=== PATIENT | male | born 1975 | race Caucasian/White ===

== ENCOUNTER 2016-11-23 07:43 | Outpatient (CLI) | payer OTHER ==
--- NOTE | 2016-11-23 09:35 | MRI Report ---
EXAM: LEFT KNEE MRI WITHOUT CONTRAST EXAM DATE: 11/23/2016 08:00 AM. CLINICAL HISTORY: Patellar dislocation in August 2015. Locking and stiffness of the knee. COMPARISON: None. TECHNIQUE: Multiplanar, multisequence T1-weighted and fluid-sensitive sequences of the knee without c ontrast. Other: None. FINDINGS: Bones: 0.8 cm lateral patellar subluxation.. Tibiofemoral alignment normal. No fracture or marrow yandy ma. Articular Cartilage: Unremarkable. Medial Meniscus: Normal. Lateral Meniscus: 1 cm bucket-handle type tear of the anterior horn and body with the 1 cm linear fra gment flipped over the anterior horn lateral meniscal root. Cruciate Ligaments: The anterior and posterior cruciate ligaments are intact. Collateral Ligaments: The medial collateral and lateral collateral ligamentous structures are intact. Tendons: Mild T2 hyperintensity distal quadriceps and proximal patellar tendons. Remaining tendons ap pear normal. Musculature: No edema or fatty atrophy. Other: Trace joint fluid. No popliteal cyst. No loose bodies. The medial and lateral retinacula are intact. The subcutaneous tissues and fat pads are unremarkable. IMPRESSION: 1. 1 cm bucket-handle tear anterior horn and body lateral meniscus. The 1 cm linear bucket-handle fra gment is flipped anteriorly over the anterior horn lateral meniscal root. 2. Mild lateral patellar subluxation. 3. Mild tendinosis distal quadriceps and proximal patellar tendons. [facility]CUL[facility] SECTION Referring Provider Line: [phone] SITE ID: [id number]
== END 2016-11-23 07:44 | disposition home or self-care (01) ==
LOC: DI 07:43
PROVIDERS: ATTEND Physician Assistant
DX: S83.252A Bucket-handle tear of lateral meniscus, current injury, left knee, initial encounter (principal); M67.88 Other specified disorders of synovium and tendon, other site

== ENCOUNTER 2017-01-28 13:17 | Outpatient (CLI) | payer OTHER ==
[2017-01-28] MEDS ORDERED: IOTHALAMATE MEGLUMINE 50 ML VIAL ONE (13:44)
[2017-01-28] MEDS ORDERED: LIDOCAINE 1% 10 ML MDV ONE (13:44)
[2017-01-28] MEDS ORDERED: GADOPENTETATE DIMEGLUMINE 5 ML VIAL IVP ONE ×3 (13:45→14:40)
[2017-01-28] MEDS ORDERED: BUFFERED LIDOCAINE 10 ML SYRINGE IU ONE ×2 (14:40)
[2017-01-28] MEDS ORDERED: LIDOCAINE 1% 10 ML MDV SUBQ ONE ×2 (14:40)
[2017-01-28] MEDS ORDERED: IOTHALAMATE MEGLUMINE 50 ML VIAL IVP ONE ×2 (14:40)
--- NOTE | 2017-01-28 16:34 | XRAY Report ---
LEFT SHOULDER INJECTION PRIOR TO MRI: 01/28/2017 HISTORY: Persistent left shoulder discomfort status post remote trauma. FINDINGS: Informed consent is obtained from the patient. Under fluoroscopic guidance, the left glenohumeral articulation is marked. With sterile technique and after the injection of 1% lidocaine for local anesthesia, a 22-gauge spinal needle is introduced into the left shoulder joint and 12 mL of a solution containing 10 mL ConRay, 10 mL lidocaine 1%, and 0.1 mL of gadolinium are injected. A fluoroscopic image confirms needle placement and contrast within the joint space. The patient tolerated the procedure well. 1 minute 3 seconds of fluoroscopy time are used. 1 image is obtained. IMPRESSION: SUCCESSFUL LEFT SHOULDER INJECTION PRIOR TO MRI. JOB #: [id number] EXT JOB #: [id number] MARIA GUADALUPE
--- NOTE | 2017-01-28 18:36 | MRI Report ---
EXAM: LEFT SHOULDER MRI ARTHROGRAM WITH CONTRAST EXAM DATE: 01/28/2017 03:14 PM. CLINICAL HISTORY: PAIN IN LEFT SHOULDER. COMPARISON: None. TECHNIQUE: Multiplanar, multisequence T1-weighted and fluid-sensitive sequences of the shoulder after an arthrographic injection of dilute gadolinium, dictated under a separate exam. Other: None. FINDINGS: Rotator cuff: Rotator cuff tendons appear intact without evidence of tear or significant tendinosis. No rotator cuff muscle atrophy or fatty replacement. Long head biceps tendon: Intact, demonstrating normal course, signal, and morphology. Labrum: Shallow contrast-filling cleft at the base of the posterior inferior labrum. Remainder of the liver appears intact. No paralabral cyst formation. Bones and articular surfaces: Slight posterior subluxation of the humeral head. No significant articu lar cartilage abnormalities are seen. Acromioclavicular joint: Normal appearance. Type II acromion. IMPRESSION: 1. Shallow contrast-filling cleft at the base of the posterior inferior labrum. Possible small focus of shallow labral tear. Remainder of the labrum appears normal. 2. Shoulder MR arthrogram otherwise within normal limits. [facility]CULOSKE[facility] SECTION Referring Provider Line: [phone] SITE ID: [id number]
== END 2017-01-28 13:18 | disposition home or self-care (01) ==
LOC: DI 13:17
PROVIDERS: ATTEND Orthopaedic Surgery
DX: M25.512 Pain in left shoulder (principal)
CPT/HCPCS: 23350; 73222; 77002; Q9961

== ENCOUNTER 2017-07-24 11:52 | Emergency (ER) | payer OTHER ==
[2017-07-24 12:00] VITALS: BP 144/74
--- NOTE | 2017-07-24 12:19 | ED Physician Documentation ---
History of Present Illness - Stated complaint Stated Complaint: MALE - Chief complaint Chief Complaint: General - History obtained from History obtained from: Patient - History of Present Illness Timing: Other (3 days ago, a day after doing some lifting but not lifting at the time he developed left scrotal pain with swelling radiating up into the left pelvis. There is no discharge or difficulty with urination or other urinary symptoms. No concern for STDs. He does intermittently take doxycycline for flares of hidradenitis, the last time he took it was about 2 weeks ago.) Review of Systems Constitutional: denies: Fever, Chills GI: denies: Abdominal Pain, Nausea, Vomiting : denies: Dysuria, Frequency, Hesitancy PD PAST MEDICAL HISTORY - Present Medications Home Medications: Ambulatory Orders Medication Instructions Recorded Confirmed Doxycycline Hyclate 1 tab PO DAILY 07/24/17 07/24/17 Meloxicam [Mobic] 1 tab PO BID 07/24/17 07/24/17 Ranitidine HCl [Acid Project Manager Retail] 1 tab PO DAILY 07/24/17 07/24/17 - Allergies Allergies/Adverse Reactions: Allergies Allergy/AdvReac Type Severity Reaction Status Date / Time No Known Drug Allergies Allergy Verified 07/24/17 12:00 PD ED PE NORMAL - Vitals Vital signs reviewed: Yes - General General: Alert and oriented X 3, No acute distress - Abdomen Abdomen: Soft, Non tender - Male Male : Other (Left hemiscrotum is swollen and tender over the epididymis with normal lie. He does not have a cremasteric reflex on that side but he does not on the contralateral side either. There is no hernia mass or abdominal tenderness.) - Back Back: No CVA TTP, No spinal TTP - Neuro Neuro: Alert and oriented X 3, Normal speech - Psych Psych: Normal mood, Normal affect Results - Vitals Vitals: Vital Signs - 24 hr 07/24/17 11:56 Temperature 36.1 C L Heart Rate 57 L Respiratory 14 Rate Blood Pressure 144/74 H O2 Saturation 99 Oxygen O2 Source Room air - Rads (name of study) Testicular sono Radiology: Prelim report reviewed (Per Dr. Flynn, hypervascular left epididymis consistent with left epididymitis and incidental left testicular cyst.) PD MEDICAL DECISION MAKING - ED course ED course: Because of his chronic hidradenitis he has plenty doxycycline at home. Departure - Departure Disposition: Home, Self Care Clinical Impression: Acute epididymitis Condition: Good Record reviewed to determine appropriate education?: Yes Instructions: Epididymitis Dc Comments: Take doxycycline at a dose of 100 mg twice a day for 2 weeks, this should improve your condition. [place] Return if worse. Your blood pressure was elevated today on check into the emergency department. This does not mean that you have hypertension, it is a common phenomenon to come to the emergency department and have elevated blood pressure. I recommend that you see your primary care physician within the week to have it rechecked when you are feeling better. Discharge Date/Time: 07/24/17 14:25
[2017-07-24] MEDS ORDERED: LIDOCAINE 1% 2 ML VIAL SUBQ ONE (13:34)
[2017-07-24] MEDS ORDERED: cefTRIAXone 250 MG VIAL IM STA (13:34)
--- NOTE | 2017-07-24 13:40 | Ultrasound Report ---
SCROTAL DUPLEX: 07/24/2017 CLINICAL INDICATION: Left-sided pain and swelling. TECHNIQUE: Real-time scanning was performed with outside dealer sales representative static images obtained. FINDINGS: The right testicle measures 4.5 x 2.9 x 2.0 cm. It demonstrates normal flow and echotexture. The right epididymis is unremarkable. The left testicle measures 4.7 x 2.7 x 2.1 cm. An incidental 4 mm cyst is noted. Normal flow is seen, and the remainder of the testicle demonstrates normal echotexture. The left epididymis is hypervascular, suggestive of epididymitis. No hydrocele or varicocele is seen. No hernia is appreciated. IMPRESSION: HYPERVASCULAR LEFT EPIDIDYMIS RELATIVE TO THE RIGHT, SUGGESTIVE OF EPIDIDYMITIS. INCIDENTAL 4 MM LEFT TESTICULAR CYST. NO SUSPICIOUS SOLID TESTICULAR LESION IS APPRECIATED. NO EVIDENCE OF TESTICULAR TORSION AT THIS TIME. TD: 07/24/2017 13:34
== END 2017-07-24 14:25 | disposition home or self-care (01) ==
LOC: ED 11:52
DX: N45.1 Epididymitis (principal); R03.0 Elevated blood-pressure reading, without diagnosis of hypertension
CPT/HCPCS: 76870; 93975; 96372; 99282; 99283

== ENCOUNTER 2017-08-27 12:35 | Emergency (ER) | payer OTHER ==
--- NOTE | 2017-08-27 12:44 | ED Physician Documentation ---
PD HPI HEAD INJURY - Stated complaint Stated Complaint: EYE INJURY - Chief complaint Chief Complaint: Trauma Hd/Nk - History obtained from History obtained from: Patient - History of Present Illness Mechanism of head injury: Blow (he was pitching in softball game and got line drive batted back to him, with impact to left periorbital area. Pain and swelling around left eye, and unable to see due to swelling. Has laceration medial eyebrow area. Pain at nose and some epistaxis. No LOC, no altered mentation. No vomiting, but has nausea. 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 No: LOC, AMS, Neck pain Symptoms improve with: No: Rest Symptoms worsen with: Palpation Contributing factors: No: Anticoagulated, Intoxicated Similar symptoms before: Has not had sx before Recently seen: Not recently seen Review of Systems Constitutional: denies: Fever, Chills Nose: denies: Rhinorrhea / runny nose, Congestion Throat: denies: Sore throat Cardiac: denies: Chest pain / pressure Respiratory: denies: Dyspnea, Cough GI: reports: Nausea. denies: Abdominal Pain, Vomiting : denies: Dysuria, Frequency Neurologic: denies: Focal weakness, Numbness PD PAST MEDICAL HISTORY - Past Medical History Cardiovascular: None Respiratory: None Neuro: None Endocrine/Autoimmune: None - Past Surgical History Past Surgical History: No - Present Medications Home Medications: Ambulatory Orders Medication Instructions Recorded Confirmed Doxycycline Hyclate 1 tab PO DAILY 07/24/17 07/24/17 Meloxicam [Mobic] 1 tab PO BID 07/24/17 07/24/17 Ranitidine HCl [Acid Twitchell Operator] 1 tab PO DAILY 07/24/17 07/24/17 HYDROcod/ACETAM 5/325 [[facility] 5/325] 1 tab PO Q6H PRN #15 tablet 08/27/17 Ibuprofen [Motrin] 600 mg PO TID #30 tab 08/27/17 - Allergies Allergies/Adverse Reactions: Allergies Allergy/AdvReac Type Severity Reaction Status Date / Time isoniazid Allergy Hives Verified 08/27/17 12:52 - Social History Does the pt smoke?: No Smoking Status: Never smoker Does the pt drink ETOH?: Yes Does the pt have substance abuse?: No - Immunizations Immunizations are current?: Yes PD ED PE NORMAL - Vitals Vital signs reviewed: Yes - General General: Alert and oriented X 3, Well developed/nourished, Other (uncomfortable due to facial injury. Swelling left periorbital, and hard to open eyelids due to swelling. I can open them enough to see eye and pupil appears similar size to other. He can see light. I could not get the eye open enough to really test visual acuity. There is laceration 1.5 cm at medial eyebrown area. He has numbness of lower lip and teeth, but no lac at infraorbital area. Nose is some tender. No dental injury noted. ) - HEENT HEENT: Pharynx benign - Neck Neck: Supple, no meningeal sign, No bony TTP, No adenopathy - Cardiac Cardiac: RRR, No murmur - Respiratory Respiratory: Clear bilaterally, Other (no chestwall tenderness) - Abdomen Abdomen: Soft, Non tender - Derm Derm: Normal color, Warm and dry - Neuro Neuro: Alert and oriented X 3, No motor deficit, Normal speech, Other (numbness left upper lip and teeth area, and left side of nose. ) Eye Opening: Spontaneous (with limitation of left eyelids swelling.) Motor: Obeys Commands Verbal: Oriented GCS Score: 15 - Psych Psych: Normal mood, Normal affect Results - Vitals Vitals: Oxygen O2 Source Room air - Labs Labs: Laboratory Tests 08/27/17 08/27/17 12:47 12:47 WBC 6.4 RBC 4.75 Hgb 12.9 L Hct 39.5 L MCV 83.3 MCH 27.2 MCHC 32.6 RDW 14.0 Plt Count 183 MPV 8.6 Neut # (Auto) 3.1 Lymph # (Auto) 2.7 [place] # (Auto) 0.5 Eos # (Auto) 0.1 Baso # (Auto) 0.0 Absolute Nucleated RBC 0.00 Nucleated RBC % 0.1 Sodium 134 L Potassium 3.1 L Chloride 102 Carbon Dioxide 22 Anion Gap 10.0 BUN 18 Creatinine 1.1 Estimated GFR (MDRD) 73 L Glucose 103 H Calcium 9.4 Total Bilirubin 0.5 AST 30 ALT 33 Alkaline Phosphatase 75 Total Protein 7.7 Albumin 3.6 Globulin 4.1 Albumin/Globulin Ratio 0.9 L Lipase 24 - Rads (name of study) facial CT Radiology: Prelim report reviewed (nasal fracture mild and medial wall small fracture, not displaced. Orbit with swelling and some blood preseptal. No posterior blood/swelling. ) Procedures - Laceration (location) left medial eyebrow Length in cm: 2 Wound type: Curved, Into subcut fat, Clean Neurovascular status: Sensory intact, Motor intact Wound Preparation: Irrigated copiously NS, Wound edges modified Deep layer closure: Vicryl, size #-0 - enter number (5), # sutures - enter number (3) Skin layer closure: Nylon, Running, Size #-0 - enter number (6) Other: Patient tolerated well, No complications, Neurovascular intact, Tetanus UTD Complexity: Intermediate PD MEDICAL DECISION MAKING - ED course Complexity details: reviewed results (mild fracture of nose and medial orbital wall. ), considered differential (will get facial and head CT; unable to get good look at eye but seems initially okay. [place] when swelling down enough for good eye exam. ), d /w patient - Sepsis Event Vital Signs: Oxygen O2 Source Room air Departure - Departure Disposition: Home, Self Care Clinical Impression: Struck by softball, initial encounter, Periorbital swelling Facial bones, closed fracture Qualifiers: Encounter type: initial encounter Facial bone/location: nasal bone Qualified Code(s): S02.2XXA - Fracture of nasal bones, initial encounter for closed fracture Eyebrow laceration Qualifiers: Encounter type: initial encounter Laterality: left Qualified Code(s): S01.112A - Laceration without foreign body of left eyelid and periocular area, initial encounter Condition: Stable Record reviewed to determine appropriate education?: Yes Instructions: ED Fx Nasal Conf W X Ray, ED Laceration Facial Sutr Tape Follow-Up: MARILOU JO [Primary Care Provider] - Prescriptions: HYDROcod/ACETAM 5/325 [[place] 5/325] 1 tab PO Q6H PRN #15 tablet PRN Reason: Pain Ibuprofen [Motrin] 600 mg PO TID #30 tab Comments: apply cool towels or ice periodically to the face and stay sitting upward in sleep reclined to reduce swelling. Use ibuprofen 3 times a day. Add Tylenol or hydrocodone if needed for pain. Off work and rest for 3 or 4 days. Follow-up in several days with your primary care for reevaluation of the wound and also the swelling around the eyes should be reduced enough to be able to get a better examination of the vision acuity. It is okay to wash and shower. Clean off the wound twice a day with soap and water, or peroxide and water. Apply some antibiotic ointment to it to keep it moist. Also to watch for signs of infection such as purulence, redness or increasing pain. Return to your primary care or the ER at the specified time for suture removal. Suture removal 7 or 8 days. See how your nose appearance and function is after a couple of weeks and your primary can refer you to ear nose and throat if needed for follow-up of those if there is any impairment. Discharge Date/Time: 08/27/17 14:32
[2017-08-27] MEDS ORDERED: ONDANSETRON 4 MG/2 ML VIAL IVP STA (12:51)
[2017-08-27] MEDS ORDERED: MORPHINE 10 MG/ML VIAL IVP STA (12:51)
[2017-08-27] MEDS ORDERED: SODIUM CHLORIDE 0.9% 1,000 ML IV ONE (12:52)
[2017-08-27] MEDS ORDERED: LIDOCAINE MPF 1%-EPI 1:200000 30 ML VIAL SUBQ STA (12:58)
[2017-08-27 13:00] LABS: BASOPHILS % (AUTO) 0.3 %; EOSINOPHILS # (AUTO) 0.1 10^3/uL (0.0-0.7); EOSINOPHILS % (AUTO) 1.4 %; HGB - HEMOGLOBIN 12.9 g/dL (14.0-18.0); LYMPHOCYTES # (AUTO) 2.7 10^3/uL (1.5-3.5); LYMPHOCYTES % (AUTO) 42.3 %; MEAN CORPUSCULAR HEMOGLOBIN 27.2 pg (27.0-31.0); MEAN CORPUSCULAR HGB CONC 32.6 g/dL (32.0-36.0); MEAN CORPUSCULAR VOLUME 83.3 fL (80.0-94.0); MEAN PLATELET VOLUME 8.6 fL (7.4-11.4); MONOCYTES # (AUTO) 0.5 10^3/uL (0.0-1.0); NEUTROPHILS # (AUTO) 3.1 10^3/uL (1.5-6.6); PLT - PLATELET COUNT 183 10^3/uL (130-450); RED BLOOD COUNT 4.75 10^6/uL (4.70-6.10); WHITE BLOOD COUNT 6.4 x10^3/uL (4.8-10.8)
[2017-08-27 13:10] LABS: ALBUMIN 3.6 g/dL (3.2-5.5); ALBUMIN/GLOBULIN RATIO 0.9 (1.0-2.2); BILIRUBIN,TOTAL 0.5 mg/dL (0.2-1.0); CALCIUM 9.4 mg/dL (8.5-10.3); CREATININE 1.1 mg/dL (0.6-1.2); TOTAL PROTEIN 7.7 g/dL (6.7-8.2)
--- NOTE | 2017-08-27 13:35 | CT Report ---
Procedure Date: 08/27/2017 Accession Number: [id number] / [id number] Procedure: CT - Head W/O CPT Code: FULL RESULT: EXAM: CT HEAD EXAM DATE: 08/27/2017 01:15 PM. CLINICAL HISTORY: Struck left face with softball. COMPARISON: None. TECHNIQUE: Multiaxial CT images were obtained from the foramen magnum to the vertex. Reformats: Coronal. IV contrast: None. In accordance with CT protocol optimization, one or more of the following dose reduction techniques were utilized for this exam: automated exposure control, adjustment of mA and/or KV based on patient size, or use of iterative reconstructive technique. FINDINGS: Parenchyma: No intraparenchymal hemorrhage. No evidence of mass, midline shift, or CT findings of infarction. Taylor-white differentiation is distinct. Extraaxial Spaces: Normal for age. No subdural or epidural collections identified. Ventricles: Normal in size and position. Sinuses and Orbits: Mild bilateral ethmoid sinus disease. Remainder of included portions of the paranasal sinuses and mastoid air cells are clear. Bones: Minimally displaced nasal bone fracture with deviation to the right. No other definitive fractures are identified. Other: There is left paranasal, premaxillary left periorbital and frontal soft tissue edema with associated hematoma measuring at least 2 cm. Soft tissue defect and subcutaneous air/gas is also seen most likely representing a laceration. Lobular heterogeneous soft tissue mass is seen along the right parietal scalp measuring approximately 5 cm area. Globes and orbits are intact. IMPRESSION: 1. No acute intracranial abnormality is identified. 2. Nasal bone fracture with mild deviation to the right. 3. Extensive left facial, periorbital and frontal soft tissue edema, hematoma and laceration. 4. Left globe and orbit intact. 5. Right parietal 5 cm soft tissue scalp mass. [facility]
--- NOTE | 2017-08-27 13:48 | CT Report ---
Procedure Date: 08/27/2017 Accession Number: [id number] / [id number] Procedure: CT - Facial Bones W/O CPT Code: FULL RESULT: EXAM: CT MAXILLOFACIAL WITHOUT CONTRAST EXAM DATE: 08/27/2017 01:15 PM. CLINICAL HISTORY: Struck left periorbital with softball. COMPARISONS: None. TECHNIQUE: Thin-section axial images were acquired of the face without contrast. Post-processing: Coronal and sagittal reformats. Other: None. In accordance with CT protocol optimization, one or more of the following dose reduction techniques were utilized for this exam: automated exposure control, adjustment of mA and/or KV based on patient size, or use of iterative reconstructive technique. FINDINGS: Soft Tissue: Extensive left nasal, premaxillary, periorbital, frontal largely left frontal soft tissue edema and hematoma measuring approximately 2 cm with hematoma and blood products tracking along the margins of the left globe superiorly along the cephalad margin of the left superior rectus muscle. Airways are clear. Laceration also present involving the left superior periorbital and left frontal soft tissues. Orbits: Intact globes in particular on the left although there is mild post septal edema along the superior aspect of the left globe and along the left superior rectus muscle which appears to represent blood products. No intraconal edema is definitively seen. Bones: Nasal bone fracture seen with slight deviation to the right and slight displacement. Slight displacement of anterior nasal septal fracture also noted. In addition, there is a nondisplaced left inferior orbital floor fracture with displacement margin along the mid anterior aspect of the left orbital floor Temporomandibular Joints: The temporomandibular joints are symmetric and normally located. Sinuses: Mild bilateral maxillary, sphenoid and ethmoid sinus disease. Remainder of the paranasal sinuses and mastoid air cells are clear. Other: Degenerative changes of the cervical spine. IMPRESSION: 1. Mildly displaced nasal bone and anterior nasal septal fracture with deviation to the right. 2. Minimally displaced left inferior orbital floor fracture inferiorly largely along the mid anterior aspect of the orbital floor. 3. Intact left globe with blood products tracking post septal along the cephalad margin of the left globe and left superior rectus musculature. No post-septal involvement. 4. Extensive left premaxillary, paranasal, periorbital and frontal soft tissue edema and hematoma and laceration. [facility]
[2017-08-27 14:31] VITALS: BP 147/85
== END 2017-08-27 14:32 | disposition home or self-care (01) ==
LOC: ED 12:35
DX: S02.2XXA Fracture of nasal bones, initial encounter for closed fracture (principal); S02.32XA Fracture of orbital floor, left side, initial encounter for closed fracture; S01.112A Laceration without foreign body of left eyelid and periocular area, initial encounter; H57.8 Other specified disorders of eye and adnexa; W21.07XA Struck by softball, initial encounter; Y93.64 Activity, baseball
CPT/HCPCS: 12051; 36415; 70450; 70486; 80053; 83690; 85025; 96361; 96374; 96375; 99284

== ENCOUNTER 2019-02-04 07:19 | Outpatient (CLI) | payer OTHER ==
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
== END 2019-02-04 07:20 | disposition home or self-care (01) ==
LOC: DI 07:19
PROVIDERS: ATTEND Orthopaedic Surgery
DX: S83.282A Other tear of lateral meniscus, current injury, left knee, initial encounter (principal); M94.262 Chondromalacia, left knee

== ENCOUNTER 2019-02-05 05:59 | Day surgery (SDC) | payer OTHER ==
[2019-02-05] MEDS ORDERED: HYDROmorphone 1 MG/ML SYRINGE IM ONE (06:00)
[2019-02-05] MEDS ORDERED: DEXAMETHASONE 4 MG/ML VIAL IVP ONE (06:00)
[2019-02-05] MEDS ORDERED: MIDAZOLAM 2 MG/2 ML VIAL IVP ONE (06:00)
[2019-02-05] MEDS ORDERED: PROPOFOL 200 MG/20 ML VIAL IVP ONE (06:00)
[2019-02-05] MEDS ORDERED: KETOROLAC 30 MG/ML VIAL IVP ONE (06:00)
[2019-02-05] MEDS ORDERED: CEFAZOLIN SODIUM IN 0.9 % NACL 2 GM/100 ML BAG IV ONE (06:21)
[2019-02-05] MEDS ORDERED: LACTATED RINGERS 1,000 ML IV ONE (06:56)
[2019-02-05] MEDS ORDERED: EPINEPHrine 1 MG/ML AMP ONE (06:56)
--- NOTE | 2019-02-05 06:59 | ANESTHESIA ---
Pre-Anesthesia VS, & Labs - Diagnosis left knee meniscus tear - Procedure Left knee arthroscopy Vital Signs: Temp Pulse Resp BP Pulse Ox 36.2 C L 55 L 16 130/79 97 02/05/19 06:30 02/05/19 06:30 02/05/19 06:30 02/05/19 06:30 02/05/19 06:30 Height 5 ft 11 in Weight (kg) 120.66 kg Body Mass Index 36.5 Home Medications and Allergies Home Medications: Ambulatory Orders Benzoyl Perox/Skin Clnsr/Emoll [Acnefree Severe Acne Clr Systm] 1 each TP 01/26/19 Carboxymethylcellulos/Glycerin [Refresh Optive Eye Drops] 01/26/19 Cetirizine [ZyrTEC] 10 mg PO DAILY 01/26/19 Clindamycin Phos/Benzoyl Perox [Clindamycin-Benzoyl Perox 1-5%] 25 gm TP 01/26/19 ISOtretinoin [Isotretinoin] 100 mg PO 01/26/19 Ketoconazole 120 ml TP 01/26/19 Omeprazole Magnesium [Prilosec] 20 mg PO 01/26/19 Meloxicam [Mobic] 1 tab PO BID 07/24/17 Benzoyl Perox/Skin Clnsr/Emoll [Acnefree Severe Acne Clr Systm] 1 each TP 01/26/19 Carboxymethylcellulos/Glycerin [Refresh Optive Eye Drops] 01/26/19 Cetirizine [ZyrTEC] 10 mg PO DAILY 01/26/19 Clindamycin Phos/Benzoyl Perox [Clindamycin-Benzoyl Perox 1-5%] 25 gm TP 01/26/19 ISOtretinoin [Isotretinoin] 100 mg PO 01/26/19 Ketoconazole 120 ml TP 01/26/19 Omeprazole Magnesium [Prilosec] 20 mg PO 01/26/19 Allergies/Adverse Reactions: Allergies Allergy/AdvReac Type Severity Reaction Status Date / Time isoniazid Allergy Hives Verified 01/26/19 13:23 berries Allergy Hives Uncoded 01/26/19 13:23 Anes History & Medical History - Anesthetic History Anesthesia Complications: reports: No previous complications Family history of Anesthesia Complications: Denies Family history of Malignant Hyperthermia: Denies - Medical History Cardiovascular: reports: None Pulmonary: reports: Sleep apnea, CPAP use Gastrointestinal: reports: GERD Urinary: reports: None Neuro: reports: None Musculoskeletal: reports: Other Endocrine/Autoimmune: reports: None Blood Disorders: reports: None Skin: reports: Other Smoking Status: Never smoker Psychosocial: reports: No issues indicated - Surgical History Dermatologic: Other Exam General: Alert, Oriented x3, Cooperative, No acute distress Dental: WNL Mouth Openin Fingerbreadth Neck Mobility: Normal Mallampati classification: I Thyromental Distance: greater than 6 cm Respiratory: Lungs clear, Normal breath sounds, No respiratory distress, No accessory muscle use Cardiovascular: Regular rate, Normal S1, Normal S2, No murmurs Abdomen: Normal bowel sounds, Soft, No tenderness, No hepatospenomegaly, No masses Extremities: No clubbing, No cyanosis, No edema, Normal pulses, No tenderness/swelling Neurological: Normal gait, Normal speech, Strength at 5/5 X4 ext, Normal tone, Sensation intact, Cranial nerves 3-12 NL, Reflexes 2+ Mental/Cognitive Status: Alert/Oriented X3, Normal for patient Cognitive Status: Within normal limits Plan Anesthesia Type: General Consent for Procedure(s) Verified and Reviewed: Yes Code Status: Attempt Resuscitation ASA classification: 2-Mild systemic disease Is this case an emergency?: No
[2019-02-05] MEDS: BUPIVACAINE 0.25% PF 30 ML VIAL ONE ×2 (08:07→08:26)
[2019-02-05] MEDS ORDERED: ONDANSETRON 4 MG/2 ML VIAL IVP PRN (08:45)
[2019-02-05] MEDS ORDERED: oxyCODONE 5 MG TABLET PO PRN (08:45)
--- NOTE | 2019-02-05 08:52 | OPERATIVE REPORT ---
Operative Report - Other Other Information/Narrative: Date of Surgery: 05 February 2019 Pre-Op Diagnosis: Left knee lateral meniscus tear. Left knee trochlear cartilage lesion. Left knee patellar cartilage lesion. Left knee loose bodies. Procedure: Left knee arthroscopic loose body removal, lateral meniscus debrid ement, trochlear chondroplasty, patellar chondroplasty Postop Diagnosis: Same Primary Surgeon: Jonah Murdock Secondary Surgeon: None Complications: None EBL: 5 cc Indication For Surgery: 43-year-old male with medial and lateral knee pain with mechanical symptoms since August 2016. He also had a dislocation sensation through his left patella. Imaging showed concern for patellar and trochlear cartilage lesions as well as a meniscus tear. The risks, benefits, and alternatives were discussed. Risks include pain, bleeding, infection, damage to nearby structures and cartilage, lack of symptom relief, need for further surgery, DVT, PE, stroke, and . Written consent was obtained. Examination Under Anesthesia: ROM equal to the contralateral side. Stable dial at 30 & 90 degrees. Stable to varus and valgus stressing at 0 & 30 degrees. Stable Priyank. Normal Pivot shift. Mild mechanical sensation Arthroscopic Findings: Many small loose bodies were seen throughout the knee, t hey were excised. Synovium was injected and exuberant anteriorly, this was debrided. Patella cartilage grade 3 lesion to the medial patellar facet. Trochlear cartilage 15 x 15 mm lesion in the central trochlea that extended more medially, there was also a full-thickness fissure superiorly. Medial femoral condyle cartilage normal. Medial tibial plateau cartilage with mild grade 1/2 changes. Medial meniscus normal. ACL was normal. PCL was normal. Lateral femoral condyle cartilage normal. Lateral tibial plateau cartilage normal. Lateral meniscus had a parrot-beak tear of the anterior horn with a unstable piece anteriorly, there was also a radial tear in the body that was debrided back to a stable base. Procedure in Detail: The patient was met in the pre-operative hold area on the day of the procedure. The operative extremity was signed and questions were answered. The patient was brought to the operating room and a general anesthetic was administered. Supine position was used and bony prominences were padded. An examination under anesthesia was performed. Standard prepping and draping was performed. A time out confirmed patient identification, laterality, procedure, allergies, antibiotics, and images. An Esmarch was used to exsanguinate the limb and the tourniquet was elevated to 250 mmHg. A standard diagnostic arthroscopy of the knee was performed through a nterolateral and anteromedial portal sites. The anteromedial portal was created under direct visualization after localizing with a spinal needle. The findings can be found above. I then proceeded to use of biter and shaver to debride the unstable portion of the anterior horn lateral meniscus. I then debrided the fat pad and excised a large portion to allow for better visualization and to provide symptom improvement. I then used a straight biter and a shaver to debride all unstable portions of the radial tear of the lateral meniscus back to a stable base. I then moved in the patellofemoral joint and found unstable cartilage flaps of the distal medial portion of the trochlea and removed that. I then removed unstable portions of the patellar cartilage lesion as well. I took measurements. Final images were taken and all arthroscopic fluid and instruments were removed from the knee. The incisions were closed with buried monocryl sutures. Steri strips were applied. 20 cc of 0.25% Marcaine without epinephrine was injected near the portal sites. A sterile dressing and compression stocking was placed. The patient was awakened and transferred to recovery in stable condition.
[2019-02-05] MEDS ORDERED: fentaNYL 100 MCG/2 ML VIAL ONE (09:10)
[2019-02-05] MEDS ORDERED: oxyCODONE 5 MG TABLET ONE (09:55)
[2019-02-05 10:19] VITALS: BP 122/68
== END 2019-02-05 06:00 | disposition home or self-care (01) ==
LOC: SDS 05:59
PROVIDERS: ATTEND Orthopaedic Surgery
PROC: 0SBD4ZZ Excision of Left Knee Joint, Percutaneous Endoscopic Approach (ICD-10-PCS; principal; 2019-02-05 07:30)
DX: S83.282A Other tear of lateral meniscus, current injury, left knee, initial encounter (principal); G47.30 Sleep apnea, unspecified